=== PATIENT | male | born 1980 | race Caucasian/White ===

== ENCOUNTER 2019-09-29 08:13 | Emergency (ER) | payer MEDICAID, SELFPAY ==
[~2019-09-29] VITALS: Ht 157.5 cm; Wt 98.0 kg
[2019-09-29 08:23] VITALS: Ht 157.5 cm; Wt 98.0 kg
[2019-09-29 09:02] VITALS: BP 140/90
== END 2019-09-29 09:02 | disposition home or self-care (01) ==
LOC: ED 08:13
DX: U07.1 COVID-19 (principal); R43.0 Anosmia; E66.01 Morbid (severe) obesity due to excess calories
CPT/HCPCS: U0003-CS